=== PATIENT | female | born 1995 | race African-American/Black ===

== ENCOUNTER 2018-12-20 15:24 | Emergency (ER) | payer OTHER ==
[~2018-12-20] VITALS: Ht 157.5 cm; Wt 62.0 kg
[2018-12-20 15:29] VITALS: BP 150/90
== END 2018-12-20 23:30 | disposition left against medical advice (07) ==
LOC: ER 15:24
DX: R10.9 Unspecified abdominal pain (principal); Z53.21 Procedure and treatment not carried out due to patient leaving prior to being seen by health care provider

== ENCOUNTER 2024-04-15 17:33 | Emergency (ER) | payer OTHER ==
[2024-04-15 17:36] VITALS: PULSE 72
== END 2024-04-15 19:03 | disposition left against medical advice (07) ==
LOC: ER 17:33
DX: R10.9 Unspecified abdominal pain (principal); Z53.21 Procedure and treatment not carried out due to patient leaving prior to being seen by health care provider